=== PATIENT | male | born 1985 | race Caucasian/White ===

== ENCOUNTER 2016-08-13 20:36 | Inpatient (IN) | payer SELFPAY ==
[2016-08-16] MEDS ORDERED: LOVENOX DP40 MG/0.4 SQ (11:39)
[2016-08-16] MEDS ORDERED: AMBISOME50 MG/20 M IV (11:40)
[2016-08-16] MEDS ORDERED: D5W100 ML IV (11:41)
[2016-08-16] MEDS ORDERED: KCL 20 MEQ20 MEQ/100 IV (11:42)
[2016-08-16] MEDS ORDERED: NORMAL SALINE FL5 ML IV (11:42)
[2016-08-16] MEDS ORDERED: SOLU-MEDROL125 MG IV (11:43)
[2016-08-16] MEDS ORDERED: VANCOCIN-DPS500 MG IV (11:44)
[2016-08-16] MEDS ORDERED: TYLENOL DPS325 MG PO (11:45)
[2016-08-16] MEDS ORDERED: ZOSYN 3.3753.375 GM IV (11:45)
[2016-08-16] MEDS ORDERED: [UNRECOGNIZED DRUG - OTHER] IV (11:45)
[2016-08-16] MEDS ORDERED: DUONEB DPS3 ML IH (11:46)
== END 2016-08-15 10:45 | disposition short-term general hospital (02) | DRG 306 ==
DX: I05.0 Rheumatic mitral stenosis (principal); J96.91 Respiratory failure, unspecified with hypoxia; J81.1 Chronic pulmonary edema; J18.8 Other pneumonia, unspecified organism; N17.9 Acute kidney failure, unspecified; I27.2 Other secondary pulmonary hypertension; Z68.43 Body mass index [BMI] 50.0-59.9, adult; J67.0 Farmer's lung; J02.9 Acute pharyngitis, unspecified; E86.0 Dehydration; B34.8 Other viral infections of unspecified site; J45.909 Unspecified asthma, uncomplicated; R91.8 Other nonspecific abnormal finding of lung field; E66.01 Morbid (severe) obesity due to excess calories; I10 Essential (primary) hypertension; E78.00 Pure hypercholesterolemia, unspecified; R59.0 Localized enlarged lymph nodes; Z87.891 Personal history of nicotine dependence; Z77.29 Contact with and (suspected) exposure to other hazardous substances

== ENCOUNTER → 2016-09-06 | Outpatient (CLI) | payer SELFPAY ==
[~2016-09-06] MED LIST: AMBISOME50 MG/20 M IV; D5W100 ML IV; DUONEB DPS3 ML IH; KCL 20 MEQ20 MEQ/100 IV; LOVENOX DP40 MG/0.4 SQ; NORMAL SALINE FL5 ML IV; SOLU-MEDROL125 MG IV; TYLENOL DPS325 MG PO; VANCOCIN-DPS500 MG IV; ZOSYN 3.3753.375 GM IV; [UNRECOGNIZED DRUG - OTHER] IV
== END | disposition home or self-care (01) ==
LOC: RAD.S 16:00
DX: R05 Cough (principal); J84.10 Pulmonary fibrosis, unspecified; R91.8 Other nonspecific abnormal finding of lung field